=== PATIENT | female | born 1995 | race Caucasian/White ===

== ENCOUNTER 2018-11-03 17:53 | Emergency (ER) | payer MEDICARE, OTHER ==
[2018-11-03 19:59] LABS: ADD MAN DIFF? NO
[2018-11-03 20:07] LABS: BASOPHILS % 0.5 % (0.0-2.0); EOSINOPHILS # 0.1 10^3/ul (0.0-0.5); EOSINOPHILS % 1.7 % (0.0-7.0); HEMATOCRIT 34.9 % (37.0-47.0); HEMOGLOBIN 11.5 g/dl (12.0-16.0); LYMPHOCYTES # 1.7 10^3/ul (0.8-2.9); LYMPHOCYTES % 20.9 % (15.0-51.0); MEAN CORPUSCULAR HEMOGLOBIN 30.5 pg (29.0-33.0); MEAN CORPUSCULAR VOLUME 92.6 fl (82.0-101.0); MONOCYTE # 0.6 10^3/ul (0.3-0.9); MONOCYTES % 7.5 % (0.0-11.0); NEUTROPHIL # 5.7 10^3/ul (1.6-7.5); PLATELET COUNT 196 10^3/UL (140-415); RED BLOOD COUNT 3.77 10^6/ul (4.20-5.40); RED CELL DISTRIBUTION WIDTH 11.9 % (11.5-14.5)
[2018-11-03 20:07] LABS: WHITE BLOOD COUNT 8.3 10^3/ul (4.8-10.8)
[2018-11-03 20:15] LABS: PROTIME 31.2 Sec (11.9-14.9); PT RATIO 2.4
[2018-11-03 20:16] LABS: PARTIAL THROMBOPLASTIN TIME 51.8 Sec (23.0-35.0)
[2018-11-03] MEDS: ACETAMINOPHEN 325 MG TAB PO (20:21)
[2018-11-03 20:22] LABS: ANION GAP 15 (5-13); BLOOD UREA NITROGEN 52 mg/dl (7-20); CALCIUM 9.6 mg/dl (8.4-10.2); CARBON DIOXIDE 33 mmol/L (21-31); CHLORIDE 96 mmol/L (97-110); CREATININE 8.67 mg/dl (0.44-1.00); Estimated GFR 6 mL/min (>60); GLUCOSE 84 mg/dl (70-220); POTASSIUM 4.6 mmol/L (3.5-5.1); SODIUM 144 mmol/L (135-144)
== END 2018-11-03 22:01 | disposition home or self-care (01) ==
LOC: E/R 17:53
DX: T82.838A Hemorrhage due to vascular prosthetic devices, implants and grafts, initial encounter (principal); I12.9 Hypertensive chronic kidney disease with stage 1 through stage 4 chronic kidney disease, or unspecified chronic kidney disease; N18.9 Chronic kidney disease, unspecified; D64.9 Anemia, unspecified; Y82.9 Unspecified medical devices associated with adverse incidents; Z99.2 Dependence on renal dialysis
CPT/HCPCS: 80048; 85025; 85610; 85730; 93005; 99284-25

== ENCOUNTER 2018-12-15 19:37 | Emergency (ER) | payer MEDICARE, OTHER ==
[2018-12-15 21:13] LABS: ADD MAN DIFF? NO
[2018-12-15 21:16] LABS: BASOPHILS % 0.6 % (0.0-2.0); EOSINOPHILS # 0.2 10^3/ul (0.0-0.5); EOSINOPHILS % 2.5 % (0.0-7.0); HEMATOCRIT 33.3 % (37.0-47.0); HEMOGLOBIN 10.7 g/dl (12.0-16.0); LYMPHOCYTES # 1.4 10^3/ul (0.8-2.9); LYMPHOCYTES % 19.4 % (15.0-51.0); MEAN CORPUSCULAR HEMOGLOBIN 29.5 pg (29.0-33.0); MEAN CORPUSCULAR HGB CONC 32.1 g/dl (32.0-37.0); MEAN CORPUSCULAR VOLUME 91.7 fl (82.0-101.0); MEAN PLATELET VOLUME 10.8 fl (7.4-10.4); MONOCYTE # 0.5 10^3/ul (0.3-0.9); NEUTROPHIL # 5.1 10^3/ul (1.6-7.5); NEUTROPHILS % 70.2 % (39.0-77.0); PLATELET COUNT 251 10^3/UL (140-415); RED BLOOD COUNT 3.63 10^6/ul (4.20-5.40); RED CELL DISTRIBUTION WIDTH 12.4 % (11.5-14.5)
[2018-12-15 21:16] LABS: WHITE BLOOD COUNT 7.3 10^3/ul (4.8-10.8)
[2018-12-15] MEDS: METOCLOPRAMIDE 10 MG INJ IV (21:18)
[2018-12-15 21:20] LABS: PROTIME 63.3 Sec (11.9-14.9); PT RATIO 4.9
[2018-12-15 21:22] LABS: ANION GAP 11 (5-13); BLOOD UREA NITROGEN 44 mg/dl (7-20); CALCIUM 10.2 mg/dl (8.4-10.2); CARBON DIOXIDE 33 mmol/L (21-31); CHLORIDE 97 mmol/L (97-110); CREATININE 8.15 mg/dl (0.44-1.00); Estimated GFR 6 mL/min (>60); GLUCOSE 104 mg/dl (70-220); POTASSIUM 4.2 mmol/L (3.5-5.1); SODIUM 141 mmol/L (135-144)
[2018-12-15] MEDS: DIPHENHYDRAMINE 25 MG CAP PO (21:44)
[2018-12-15] MEDS: ACETAMINOPHEN 500 MG TAB PO (21:44)
[2018-12-15 21:49] LABS: INR 7.48
[2018-12-15 21:50] LABS: PARTIAL THROMBOPLASTIN TIME 91.8 Sec (23.0-35.0)
[2018-12-15] MEDS: PHYTONADIONE (1 MG/ML PO SYG) PO (22:17)
== END 2018-12-15 22:35 | disposition home or self-care (01) ==
LOC: E/R 19:37
DX: T82.838A Hemorrhage due to vascular prosthetic devices, implants and grafts, initial encounter (principal); R79.1 Abnormal coagulation profile; R51 Headache; L29.9 Pruritus, unspecified; M25.511 Pain in right shoulder; I12.9 Hypertensive chronic kidney disease with stage 1 through stage 4 chronic kidney disease, or unspecified chronic kidney disease; N18.9 Chronic kidney disease, unspecified; Y82.8 Other medical devices associated with adverse incidents; Z99.2 Dependence on renal dialysis
CPT/HCPCS: 36415; 80048; 81025; 85025; 85610; 85730; 96374; 99284-25

== ENCOUNTER 2018-12-17 10:02 | Emergency (ER) | payer MEDICARE, OTHER ==
[2018-12-17 10:47] LABS: ADD MAN DIFF? NO
[2018-12-17] MEDS: morphine 4 MG/ML VIAL IV (10:49)
[2018-12-17] MEDS: ONDANSETRON 4 MG INJ IV ×2 (10:49→12:50)
[2018-12-17 10:51] LABS: WHITE BLOOD COUNT 7.4 10^3/ul (4.8-10.8)
[2018-12-17 10:51] LABS: BASOPHILS % 0.5 % (0.0-2.0); EOSINOPHILS # 0.2 10^3/ul (0.0-0.5); HEMATOCRIT 32.6 % (37.0-47.0); HEMOGLOBIN 10.6 g/dl (12.0-16.0); LYMPHOCYTES # 1.7 10^3/ul (0.8-2.9); LYMPHOCYTES % 22.5 % (15.0-51.0); MEAN CORPUSCULAR HEMOGLOBIN 29.5 pg (29.0-33.0); MEAN CORPUSCULAR HGB CONC 32.5 g/dl (32.0-37.0); MEAN CORPUSCULAR VOLUME 90.8 fl (82.0-101.0); MEAN PLATELET VOLUME 11.3 fl (7.4-10.4); MONOCYTE # 0.6 10^3/ul (0.3-0.9); NEUTROPHIL # 4.9 10^3/ul (1.6-7.5); NEUTROPHILS % 66.7 % (39.0-77.0); PLATELET COUNT 250 10^3/UL (140-415); RED BLOOD COUNT 3.59 10^6/ul (4.20-5.40); RED CELL DISTRIBUTION WIDTH 12.5 % (11.5-14.5)
[2018-12-17 11:12] LABS: INR 4.72; PROTIME 44.3 Sec (11.9-14.9); PT RATIO 3.5
[2018-12-17 11:19] LABS: ALANINE AMINOTRANSFERASE 9 IU/L (13-69); ALBUMIN 5.2 g/dl (3.3-4.9); ALKALINE PHOSPHATASE 115 IU/L (42-121); AMYLASE 103 U/L (11-123); ANION GAP 14 (5-13); ASPARTATE AMINO TRANSFERASE 34 IU/L (15-46); BILIRUBIN,INDIRECT 0.4 mg/dl (0-1.1); BILIRUBIN,TOTAL 0.4 mg/dl (0.2-1.3); CALCIUM 10.7 mg/dl (8.4-10.2); CARBON DIOXIDE 28 mmol/L (21-31); CREATININE 5.28 mg/dl (0.44-1.00); Estimated GFR 10 mL/min (>60); GLUCOSE 88 mg/dl (70-220); LIPASE 180 U/L (23-300); SODIUM 137 mmol/L (135-144); TOTAL PROTEIN 9.9 g/dl (6.1-8.1)
[2018-12-17 11:25] LABS: POTASSIUM 5.2 mmol/L (3.5-5.1)
[2018-12-17 11:26] LABS: BLOOD UREA NITROGEN 29 mg/dl (7-20); CHLORIDE 95 mmol/L (97-110)
[2018-12-17 11:28] LABS: PARTIAL THROMBOPLASTIN TIME 74.9 Sec (23.0-35.0)
[2018-12-17] MEDS ORDERED: ACETAMINOPHEN 325 MG TAB PO (12:30)
[2018-12-17] MEDS ORDERED: ONDANSETRON 4 MG INJ IV (12:30)
[2018-12-17] MEDS: SODIUM POLYSTYRENE 15 GM KIT (POWDER + SORBITOL) PO (12:50)
[2018-12-17] MEDS: HYDROmorphONE 1 MG/ML SYG IV (12:50)
[2018-12-17] MEDS: NA BICARBONATE 8.4% 50 ML SYG IV (12:50)
[2018-12-17] MEDS: CA CHLORIDE 10% 10 ML SYRINGE IV (12:50)
[2018-12-17] MEDS: DIPHENHYDRAMINE 50 MG INJ IV (12:50)
[2018-12-17] MEDS: ALBUTEROL 0.5% (NEB) 2.5 MG/0.5 ML AMP INH (13:23)
== END 2018-12-17 15:25 | disposition home or self-care (01) ==
LOC: E/R 15:25
DX: T82.838D Hemorrhage due to vascular prosthetic devices, implants and grafts, subsequent encounter (principal); M25.511 Pain in right shoulder; E87.5 Hyperkalemia; N18.6 End stage renal disease; N17.9 Acute kidney failure, unspecified; I12.0 Hypertensive chronic kidney disease with stage 5 chronic kidney disease or end stage renal disease; Z99.2 Dependence on renal dialysis; Z79.01 Long term (current) use of anticoagulants; Y82.8 Other medical devices associated with adverse incidents
CPT/HCPCS: 71045; 73030-RT; 80053; 82150; 83690; 84484; 84703; 85025; 85610; 85730; 93005; 94664; 96374; 96375; 96376; 99285-25

== ENCOUNTER 2018-12-20 08:48 | Inpatient (IN) | payer MEDICARE, OTHER ==
[2018-12-20] MEDS: HYDROmorphONE 1 MG/ML SYG IV (10:59)
[2018-12-20] MEDS: ONDANSETRON 4 MG INJ IV (10:59)
[2018-12-20 11:16] LABS: PROTIME 56.6 Sec (11.9-14.9); PT RATIO 4.4
[2018-12-20 11:18] LABS: ANION GAP 15 (5-13); BLOOD UREA NITROGEN 51 mg/dl (7-20); CALCIUM 11.4 mg/dl (8.4-10.2); CARBON DIOXIDE 31 mmol/L (21-31); CHLORIDE 94 mmol/L (97-110); CREATININE 8.81 mg/dl (0.44-1.00); Estimated GFR 6 mL/min (>60); GLUCOSE 90 mg/dl (70-220); POTASSIUM 5.1 mmol/L (3.5-5.1); SODIUM 140 mmol/L (135-144)
[2018-12-20 11:45] LABS: INR 6.48; PARTIAL THROMBOPLASTIN TIME 132.9 Sec (23.0-35.0)
[2018-12-20 11:54] LABS: ADD MAN DIFF? NO
[2018-12-20] MEDS: HYDROmorphONE 2 MG/ML SYG IV (11:55)
[2018-12-20 11:57] LABS: BASOPHILS % 0.2 % (0.0-2.0); EOSINOPHILS # 0.2 10^3/ul (0.0-0.5); EOSINOPHILS % 2.2 % (0.0-7.0); HEMATOCRIT 29.7 % (37.0-47.0); HEMOGLOBIN 9.6 g/dl (12.0-16.0); LYMPHOCYTES # 1.5 10^3/ul (0.8-2.9); LYMPHOCYTES % 16.5 % (15.0-51.0); MEAN CORPUSCULAR HEMOGLOBIN 29.8 pg (29.0-33.0); MEAN CORPUSCULAR HGB CONC 32.3 g/dl (32.0-37.0); MEAN CORPUSCULAR VOLUME 92.2 fl (82.0-101.0); MONOCYTE # 0.8 10^3/ul (0.3-0.9); NEUTROPHIL # 6.7 10^3/ul (1.6-7.5); NEUTROPHILS % 71.9 % (39.0-77.0); PLATELET COUNT 249 10^3/UL (140-415); RED BLOOD COUNT 3.22 10^6/ul (4.20-5.40); RED CELL DISTRIBUTION WIDTH 12.4 % (11.5-14.5)
[2018-12-20 11:57] LABS: WHITE BLOOD COUNT 9.4 10^3/ul (4.8-10.8)
[2018-12-20] MEDS: DIPHENHYDRAMINE 50 MG INJ IV ×3 (12:21→22:15)
[2018-12-20 13:13] LABS: ERYTHROCYTE SEDIMENTATION RATE 66 mm/Hr (0-20)
[2018-12-20] MEDS ORDERED: HYDROCODONE/APAP (5/325) TAB PO (13:30)
[2018-12-20] MEDS ORDERED: ONDANSETRON 4 MG INJ IV (13:30)
[2018-12-20] MEDS ORDERED: ACETAMINOPHEN 325 MG TAB PO ×2 (13:30)
[2018-12-20] MEDS ORDERED: MAGNESIUM HYDROXIDE 30ML CUP PO (13:30)
[2018-12-20] MEDS ORDERED: NACL 0.9% 3 ML SYG IV (13:30)
[2018-12-20] MEDS: HYDROCODONE/APAP (5/325) TAB PO ×2 (15:03→22:14)
[2018-12-20] MEDS: PHYTONADIONE 10 MG in DEXTROSE 5% 50 ML IVPB (16:16)
[2018-12-20] MEDS: HYDROmorphONE 0.5 MG/0.5 ML SYG IV ×2 (17:57→22:14)
[2018-12-20] MEDS: SEVELAMER 800 MG TAB PO (18:00)
[2018-12-20] MEDS: AMLODIPINE 5 MG TAB PO (22:13)
[2018-12-20] MEDS: traZODone 50 MG TAB PO (22:14)
[2018-12-20] MEDS: SEVELAMER CARBONATE 2.4 GM PKT PO (23:43)
[2018-12-20] MEDS: SEVELAMER CARBONATE 0.8 GM PKT PO (23:43)
[2018-12-21] MEDS: HYDROCODONE/APAP (5/325) TAB PO ×3 (03:05→10:53)
[2018-12-21] MEDS: DIPHENHYDRAMINE 50 MG INJ IV ×5 (03:05→22:06)
[2018-12-21] MEDS: HYDROmorphONE 0.5 MG/0.5 ML SYG IV ×2 (03:05→08:24)
[2018-12-21 06:04] LABS: ADD MAN DIFF? NO
[2018-12-21 06:08] LABS: WHITE BLOOD COUNT 7.5 10^3/ul (4.8-10.8)
[2018-12-21 06:08] LABS: BASOPHILS % 0.5 % (0.0-2.0); EOSINOPHILS # 0.4 10^3/ul (0.0-0.5); EOSINOPHILS % 4.7 % (0.0-7.0); HEMOGLOBIN 8.6 g/dl (12.0-16.0); LYMPHOCYTES # 2.1 10^3/ul (0.8-2.9); LYMPHOCYTES % 28.3 % (15.0-51.0); MEAN CORPUSCULAR HEMOGLOBIN 29.5 pg (29.0-33.0); MEAN CORPUSCULAR HGB CONC 31.9 g/dl (32.0-37.0); MEAN CORPUSCULAR VOLUME 92.5 fl (82.0-101.0); MONOCYTE # 0.8 10^3/ul (0.3-0.9); MONOCYTES % 10.4 % (0.0-11.0); NEUTROPHIL # 4.2 10^3/ul (1.6-7.5); NEUTROPHILS % 55.8 % (39.0-77.0); PLATELET COUNT 210 10^3/UL (140-415); RED BLOOD COUNT 2.92 10^6/ul (4.20-5.40); RED CELL DISTRIBUTION WIDTH 12.4 % (11.5-14.5)
[2018-12-21 06:25] LABS: INR 1.57; PROTIME 18.9 Sec (11.9-14.9); PT RATIO 1.5
[2018-12-21 06:32] LABS: ANION GAP 14 (5-13); BLOOD UREA NITROGEN 65 mg/dl (7-20); CALCIUM 10.2 mg/dl (8.4-10.2); CARBON DIOXIDE 33 mmol/L (21-31); CHLORIDE 91 mmol/L (97-110); CREATININE 10.41 mg/dl (0.44-1.00); Estimated GFR 5 mL/min (>60); GLUCOSE 76 mg/dl (70-220); MAGNESIUM 2.8 mg/dl (1.7-2.5); SODIUM 138 mmol/L (135-144)
[2018-12-21] MEDS: AMLODIPINE 5 MG TAB PO ×2 (08:23→22:07)
[2018-12-21] MEDS: SEVELAMER CARBONATE 2.4 GM PKT PO ×2 (08:24→12:00)
[2018-12-21] MEDS: SEVELAMER CARBONATE 0.8 GM PKT PO ×2 (08:24→12:00)
[2018-12-21] MEDS: CINACALCET 30 MG TAB PO (10:54)
[2018-12-21] MEDS: HYDROmorphONE 1 MG/ML SYG IV ×3 (12:41→22:06)
[2018-12-21] MEDS: SEVELAMER CARBONATE 800 MG TABLET PO (17:27)
[2018-12-21] MEDS: ONDANSETRON 4 MG INJ IV (18:19)
[2018-12-21] MEDS ORDERED: BUPIVACAINE 0.5%/EPI (SDV) 30 ML INJ INJ (19:00)
[2018-12-21] MEDS: OXYCODONE/ACETAMINOPHEN (10/325) TAB PO (22:07)
[2018-12-21] MEDS: traZODone 50 MG TAB PO (22:08)
[2018-12-22] MEDS: DOCUSATE SODIUM 100 MG CAP PO ×2 (06:35→20:31)
[2018-12-22] MEDS: OXYCODONE/ACETAMINOPHEN (10/325) TAB PO ×4 (06:35→20:18)
[2018-12-22 08:14] LABS: ADD MAN DIFF? NO
[2018-12-22 08:21] LABS: WHITE BLOOD COUNT 9.2 10^3/ul (4.8-10.8)
[2018-12-22 08:21] LABS: BASOPHILS % 0.3 % (0.0-2.0); EOSINOPHILS # 0.3 10^3/ul (0.0-0.5); HEMATOCRIT 24.9 % (37.0-47.0); HEMOGLOBIN 8.2 g/dl (12.0-16.0); LYMPHOCYTES # 1.8 10^3/ul (0.8-2.9); LYMPHOCYTES % 19.1 % (15.0-51.0); MEAN CORPUSCULAR HGB CONC 32.9 g/dl (32.0-37.0); MEAN CORPUSCULAR VOLUME 91.2 fl (82.0-101.0); MEAN PLATELET VOLUME 10.8 fl (7.4-10.4); MONOCYTE # 0.8 10^3/ul (0.3-0.9); MONOCYTES % 8.9 % (0.0-11.0); NEUTROPHIL # 6.3 10^3/ul (1.6-7.5); NEUTROPHILS % 68.4 % (39.0-77.0); PLATELET COUNT 205 10^3/UL (140-415); RED BLOOD COUNT 2.73 10^6/ul (4.20-5.40); RED CELL DISTRIBUTION WIDTH 12.2 % (11.5-14.5)
[2018-12-22 08:39] LABS: ANION GAP 17 (5-13); BLOOD UREA NITROGEN 82 mg/dl (7-20); CALCIUM 9.2 mg/dl (8.4-10.2); CARBON DIOXIDE 28 mmol/L (21-31); CHLORIDE 92 mmol/L (97-110); GLUCOSE 80 mg/dl (70-220); MAGNESIUM 2.9 mg/dl (1.7-2.5); PHOSPHORUS 6.5 mg/dl (2.5-4.9); POTASSIUM 5.2 mmol/L (3.5-5.1); SODIUM 137 mmol/L (135-144)
[2018-12-22 08:41] LABS: INR 1.49; PROTIME 18.1 Sec (11.9-14.9); PT RATIO 1.4
[2018-12-22] MEDS: AMLODIPINE 5 MG TAB PO ×2 (09:00→20:18)
[2018-12-22 09:04] LABS: Estimated GFR 3 mL/min (>60)
[2018-12-22] MEDS: CINACALCET 30 MG TAB PO (09:42)
[2018-12-22] MEDS: SEVELAMER CARBONATE 800 MG TABLET PO ×3 (09:43→20:31)
[2018-12-22] MEDS: DIPHENHYDRAMINE 50 MG INJ IV ×2 (14:19→19:03)
[2018-12-22 15:28] LABS: HEPATITIS B SURFACE ANTIGEN NEGATIVE (NEGATIVE)
[2018-12-22 15:47] LABS: HEPATITIS B SURFACE ANTIBODY POSITIVE (NEGATIVE)
[2018-12-22] MEDS: LIDOCAINE 1% (MDV) 20 ML INJ INJ (16:05)
[2018-12-22 17:35] LABS: IMMEDIATE SPIN CROSSMATCH 1 2
[2018-12-22] MEDS: HYDROmorphONE 1 MG/ML SYG IV (20:17)
[2018-12-22] MEDS: WARFARIN 3 MG TAB GTB (20:18)
[2018-12-22] MEDS: traZODone 50 MG TAB PO (20:18)
[2018-12-23] MEDS: OXYCODONE/ACETAMINOPHEN (10/325) TAB PO ×3 (00:12→10:40)
[2018-12-23] MEDS: HYDROmorphONE 1 MG/ML SYG IV (02:52)
[2018-12-23] MEDS: DIPHENHYDRAMINE 50 MG INJ IV ×2 (02:52→12:49)
[2018-12-23 05:22] LABS: ADD MAN DIFF? NO
[2018-12-23 05:38] LABS: WHITE BLOOD COUNT 7.8 10^3/ul (4.8-10.8)
[2018-12-23 05:38] LABS: BASOPHILS % 0.4 % (0.0-2.0); EOSINOPHILS # 0.2 10^3/ul (0.0-0.5); EOSINOPHILS % 2.4 % (0.0-7.0); HEMATOCRIT 32.5 % (37.0-47.0); HEMOGLOBIN 10.8 g/dl (12.0-16.0); LYMPHOCYTES # 1.6 10^3/ul (0.8-2.9); LYMPHOCYTES % 20.6 % (15.0-51.0); MEAN CORPUSCULAR HEMOGLOBIN 29.6 pg (29.0-33.0); MEAN CORPUSCULAR HGB CONC 33.2 g/dl (32.0-37.0); MEAN PLATELET VOLUME 10.7 fl (7.4-10.4); MONOCYTE # 0.9 10^3/ul (0.3-0.9); MONOCYTES % 11.2 % (0.0-11.0); NEUTROPHIL # 5.1 10^3/ul (1.6-7.5); NEUTROPHILS % 65.1 % (39.0-77.0); PLATELET COUNT 206 10^3/UL (140-415); RED BLOOD COUNT 3.65 10^6/ul (4.20-5.40); RED CELL DISTRIBUTION WIDTH 12.4 % (11.5-14.5)
[2018-12-23 06:09] LABS: INR 1.64; PROTIME 19.5 Sec (11.9-14.9); PT RATIO 1.5
[2018-12-23 06:29] LABS: ANION GAP 12 (5-13); BLOOD UREA NITROGEN 46 mg/dl (7-20); CALCIUM 8.9 mg/dl (8.4-10.2); CARBON DIOXIDE 31 mmol/L (21-31); CHLORIDE 93 mmol/L (97-110); CREATININE 8.74 mg/dl (0.44-1.00); Estimated GFR 6 mL/min (>60); GLUCOSE 85 mg/dl (70-220); MAGNESIUM 2.5 mg/dl (1.7-2.5); PHOSPHORUS 6.5 mg/dl (2.5-4.9); POTASSIUM 5.1 mmol/L (3.5-5.1); SODIUM 136 mmol/L (135-144)
[2018-12-23] MEDS: SEVELAMER CARBONATE 800 MG TABLET PO ×2 (08:00→11:57)
[2018-12-23] MEDS: CINACALCET 30 MG TAB PO (09:35)
[2018-12-23] MEDS: AMLODIPINE 5 MG TAB PO (09:38)
[2018-12-23] MEDS: ONDANSETRON 4 MG INJ IV (13:42)
[2018-12-23] MEDS ORDERED: WARFARIN 2 MG TAB PO ×2 (17:00)
== END 2018-12-23 15:30 | disposition home or self-care (01) | DRG 553 ==
LOC: E/R 08:48 → 2NE 12-21 22:28
PROC: 30233N1 Transfusion of Nonautologous Red Blood Cells into Peripheral Vein, Percutaneous Approach (ICD-10-PCS; principal; 2018-12-22)
DX: M25.011 Hemarthrosis, right shoulder (principal); N18.6 End stage renal disease; I12.0 Hypertensive chronic kidney disease with stage 5 chronic kidney disease or end stage renal disease; Z99.2 Dependence on renal dialysis; D63.1 Anemia in chronic kidney disease; Z95.2 Presence of prosthetic heart valve; E83.52 Hypercalcemia; Z79.01 Long term (current) use of anticoagulants; E83.39 Other disorders of phosphorus metabolism; R79.1 Abnormal coagulation profile; Z86.79 Personal history of other diseases of the circulatory system
CPT/HCPCS: 36430; 73200; 80048; 83735; 84100; 85025; 85610; 85651; 85730; 86706; 86850; 86900; 86901; 86920; 87340; 90935; 93306; 96374; 96375; 96376; 97161; 97166; 99285-25